=== PATIENT | male | born 1995 | race Caucasian/White ===

== ENCOUNTER 2017-03-03 16:08 | Inpatient (IN) ==
[~2017-03-03 16:08] MED LIST: *HR* Midazolam HCl 5 MG/5 ML VIAL IVP ONE; *HR* Rocuronium Bromide 50 MG/5 ML VIAL IVC ONE
[2017-03-03] MEDS ORDERED: Naloxone 0.4 MG/ML INJ IVP PRN (18:42)
[2017-03-03] MEDS ORDERED: Ondansetron 4 MG/2 ML VIAL IVP PRN (18:42)
[2017-03-03] MEDS ORDERED: Lacri-Lube 3.5 GM TUBE BOTH EYES PRN (18:44)
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
[2017-03-03] MEDS ORDERED: 0.9 % Sodium Chloride 1,000 ML IVC ONE (18:51)
[2017-03-03 19:12] LABS: ABG Base Excess 2.6 mEq/L (-2.0 to 3.0); ABG HCO3 27.2 mEQ/L (21-27); ABG Oxygen Saturation 100 % (95-98); ABG PCO2 41 mmHg (35-45); ABG PH 7.43 pH Units (7.32-7.45); ABG PO2 351 mmHg (85-104); ABG TCO2 28.5 mEq/L (20-26)
[2017-03-03 19:13] LABS: Blood Gas FiO2 80 %; Blood Gas PEEP 5 cm H2O; Blood Gas Respiration Rate 12; Blood Gas VT 500 cc
[2017-03-03 19:17] LABS: Basophils % 0.3 %; Eosinophils % 0.2 %; Hematocrit 43.3 % (37.5-50.1); Hemoglobin 14.3 g/dL (12.9-16.9); Immature Granulocytes % 0.3 % (0-4); Lymphocytes # 0.8 K/mcL (0.6-4.6); Lymphocytes % 6.6 %; Mean Corpuscular Hemoglobin 27.4 pg (28.0-33.3); Mean Corpuscular Volume 83.1 fL (83.0-100.0); Monocytes # 0.5 K/mcL (0.0-1.3); Neutrophils # 10.5 K/mcL (1.6-8.9); Platelet Count 298 K/mcL (140-400); Red Blood Count 5.21 M/mcL (4.19-5.50); Red Cell Distribution Width 14.3 % (11.5-14.5); Segmented Neutrophils % 88.6 %
[2017-03-03 19:33] LABS: Alanine Aminotransferase 12 Units/L (0-55); Albumin 3.8 g/dL (3.5-5.0); Albumin/Globulin Ratio 1.5 (1.1-2.2); Alkaline Phosphatase 57 Units/L (38-126); Aspartate Amino Transferase 24 Units/L (5-34); BUN/Creatinine Ratio 17 (6-26); Bilirubin,Total 0.6 mg/dL (0.2-1.2); Blood Urea Nitrogen 11 mg/dL (8-26); Calcium 9.6 mg/dL (8.6-10.8); Carbon Dioxide 27 mEq/L (19-29); Chloride 112 mEq/L (98-109); Globulin 2.6 g/dL (2.4-3.5); Glucose 74 mg/dL (70-99); Magnesium 1.8 mg/dL (1.6-2.6); Osmolality,Calculated 304 (280-300); Phosphorous 2.7 mg/dL (2.3-4.7); Potassium 4.4 mEq/L (3.5-4.5); Sodium 148 mEq/L (136-145); Total Protein 6.4 g/dL (6.0-8.3); eGFR For African Americans > 60 (> 60); eGFR For Non-African Americans > 60 (> 60)
[2017-03-03 19:53] LABS: Thyroid Stimulating Hormone 0.352 mcIU/mL (0.350-4.840)
[2017-03-03] MEDS: 0.9 % Sodium Chloride 1,000 ML IVC SCH (20:29)
[2017-03-03] MEDS: *HR* Heparin 5,000 UNIT/ML VIAL SQ SCH (20:30)
[2017-03-03] MEDS: Chlorhexidine Rinse 15 ML MOUTHWASH MM SCH (20:30)
[2017-03-03] MEDS: Lacri-Lube 3.5 GM TUBE BOTH EYES SCH ×2 (20:30→23:50)
[2017-03-03] MEDS: FentaNYL (PF) 1,000 MCG in 0.9 % Sodium Chloride 80 ML IVC SCH (20:31)
[2017-03-03 21:48] LABS: Bilirubin,Urine Small (Negative); Blood,Urine Negative (Negative); Clarity,Urine Cloudy (Clear); Color,Urine Yellow (Yellow); Glucose,Urine (UA) Normal (Normal); Ketones,Urine 40 mg/dL (Negative); Leukocyte Esterase,Urine Moderate (Negative); Nitrite,Urine Positive (Negative); Protein,Urine Trace mg/dL (Neg-Trace); Specific Gravity,Urine 1.025 (1.010-1.025); Urobilinogen,Urine Normal (Normal)
[2017-03-03 21:50] LABS: Bacteria,Urine None Seen per hpf (None-Few); Squamous Epithelial Cell,Urine Many per lpf (None-Few); WBC,Urine 50-100 per hpf (0-3)
[2017-03-03 21:55] LABS: Amphetamine Screen,Urine Negative ng/mL (Cutoff=1000); Barbiturate Screen,Urine Negative ng/mL (Cutoff=200); Benzodiazepines Screen,Urine Positive ng/mL (Cutoff=200); Cannabinoid Screen,Urine Positive ng/mL (Cutoff = 50); Cocaine Screen,Urine Negative ng/mL (Cutoff= 300); Opiate Screen,Urine Negative ng/mL (Cutoff=300); Phencyclidine Screen,Urine Negative ng/mL (Cutoff=25)
[2017-03-03 22:17] LABS: C-Reactive Protein 2 mg/L (Less than 5)
[2017-03-03 22:34] LABS: INR 1.1; Prothrombin Time 12.4 Seconds (9.4-12.1)
[2017-03-03 22:36] LABS: Activated Partial Thrombo Time 34.1 Seconds (26.0-36.0)
[2017-03-04] MEDS: FentaNYL (PF) 1,000 MCG in 0.9 % Sodium Chloride 80 ML IVC SCH ×4 (02:39→21:24)
[2017-03-04 02:59] LABS: Basophils # 0.1 K/mcL (0.0-0.2); Basophils % 0.4 %; Eosinophils % 0.1 %; Hematocrit 37.9 % (37.5-50.1); Hemoglobin 12.4 g/dL (12.9-16.9); Immature Granulocytes % 0.4 % (0-4); Lymphocytes # 1.2 K/mcL (0.6-4.6); Lymphocytes % 8.7 %; Mean Corpuscular HGB Conc 32.7 g/dL (31.6-35.5); Mean Corpuscular Hemoglobin 27.5 pg (28.0-33.3); Mean Platelet Volume 9.6 fL (9.4-12.4); Monocytes # 0.6 K/mcL (0.0-1.3); Monocytes % 4.5 %; Neutrophils # 11.5 K/mcL (1.6-8.9); Platelet Count 305 K/mcL (140-400); Red Blood Count 4.51 M/mcL (4.19-5.50); Red Cell Distribution Width 14.6 % (11.5-14.5); Segmented Neutrophils % 85.9 %
[2017-03-04 03:19] LABS: Alanine Aminotransferase 14 Units/L (0-55); Albumin 3.6 g/dL (3.5-5.0); Albumin/Globulin Ratio 1.4 (1.1-2.2); Alkaline Phosphatase 51 Units/L (38-126); Aspartate Amino Transferase 26 Units/L (5-34); BUN/Creatinine Ratio 20 (6-26); Bilirubin,Total 0.4 mg/dL (0.2-1.2); Blood Urea Nitrogen 12 mg/dL (8-26); Calcium 9.1 mg/dL (8.6-10.8); Carbon Dioxide 20 mEq/L (19-29); Chloride 112 mEq/L (98-109); Globulin 2.5 g/dL (2.4-3.5); Glucose 70 mg/dL (70-99); Osmolality,Calculated 300 (280-300); Potassium 3.7 mEq/L (3.5-4.5); Sodium 146 mEq/L (136-145); Total Protein 6.1 g/dL (6.0-8.3); eGFR For African Americans > 60 (> 60); eGFR For Non-African Americans > 60 (> 60)
[2017-03-04] MEDS: Lacri-Lube 3.5 GM TUBE BOTH EYES SCH ×5 (03:42→19:35)
[2017-03-04] MEDS: 0.9 % Sodium Chloride 1,000 ML IVC SCH (03:42)
[2017-03-04 04:47] LABS: ABG Base Excess -2.8 mEq/L (-2.0 to 3.0); ABG HCO3 23.2 mEQ/L (21-27); ABG Oxygen Saturation 94 % (95-98); ABG PCO2 44 mmHg (35-45); ABG PH 7.33 pH Units (7.32-7.45); ABG PO2 77 mmHg (85-104); ABG TCO2 24.6 mEq/L (20-26)
[2017-03-04 04:48] LABS: Blood Gas FiO2 30 %; Blood Gas PEEP 5 cm H2O; Blood Gas Respiration Rate 12; Blood Gas VT 500 cc
[2017-03-04] MEDS: *HR* Heparin 5,000 UNIT/ML VIAL SQ SCH ×3 (06:23→21:42)
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
[2017-03-04] MEDS: Chlorhexidine Rinse 15 ML MOUTHWASH MM SCH ×2 (08:10→19:36)
[2017-03-04] MEDS: Pantoprazole 40 MG VIAL IVP SCH (08:10)
[2017-03-04 08:44] LABS: Acetaminophen < 1.0 mcg/mL (10-30); Salicylate < 5.0 mg/dL (15-30)
[2017-03-04] MEDS ORDERED: Bisacodyl 10 MG RECTAL SUPPOSITORY RC PRN (10:02)
[2017-03-04] MEDS: Ringers Solution, Lactated 1,000 ML IVC SCH (10:36)
--- NOTE | 2017-03-04 12:32 | Event Note ---
Date of Encounter: 03/04/17 Time of Encounter: 12:24 Conversation had with patient's father and girlfriend at bedside. Girlfriend reports that she woke up around 10:30 yesterday morning when Desmond feel out of bed. She put him back in bed and he continued to thrash around. She states that his lip was twitching, his eyes were dilated and it was "like he couldn't hear or see anything." She states that he fell out of bed a total of 4 times because he continued to thrash around in the bed. Per girlfriend, patient is supposed to be taking neurotin 600mg 1 tablet BID. But sometimes he will wake up around 5am in the morning because of pain and is unable to get back to sleep. He will then take "a few" of the neurontin at that time as well. He is on baclofen and they are not sure if sometimes he misses the dose or takes too many. They report the only new medication was viagra that he has been taking for probably the last month. He last took it two days before. Family denies any illegal drug use besides marijuana. They report that he doesn 't eat well or drink enough, he mostly drinks Monster drinks. Patient has been constipated for the last 10 days despite ED visit with 2 enemas and 2 Mg Citrate. He had a bowel movement in the bed before this event. Family denies any recent fevers but reports 1 episode of chills and 1 episode of nausea/vomiting a couple days ago. No other sick contacts or flu symptoms. No other changes in medication.
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
[2017-03-04] MEDS ORDERED: *HR* Midazolam HCl 5 MG/5 ML VIAL IVP ONE ×2 (18:41→18:45)
[2017-03-04] MEDS: Dexmedetomidine HCl 400 MCG/100 ML MLS IVC SCH (21:10)
[2017-03-05] MEDS ORDERED: FentaNYL (PF) 3,000 MCG in 0.9 % Sodium Chloride 240 ML IVC SCH (00:45)
[2017-03-05] MEDS: Ringers Solution, Lactated 1,000 ML IVC SCH ×2 (01:17→13:10)
[2017-03-05] MEDS: Lacri-Lube 3.5 GM TUBE BOTH EYES SCH ×4 (01:51→12:00)
[2017-03-05 04:00] LABS: BUN/Creatinine Ratio 17 (6-26); Blood Urea Nitrogen 10 mg/dL (8-26); Calcium 8.9 mg/dL (8.6-10.8); Carbon Dioxide 20 mEq/L (19-29); Chloride 110 mEq/L (98-109); Creatine Kinase 922 Units/L (30-200); Glucose 64 mg/dL (70-99); Magnesium 1.5 mg/dL (1.6-2.6); Osmolality,Calculated 291 (280-300); Phosphorous 3.7 mg/dL (2.3-4.7); Potassium 3.7 mEq/L (3.5-4.5); Sodium 142 mEq/L (136-145); eGFR For African Americans > 60 (> 60); eGFR For Non-African Americans > 60 (> 60)
[2017-03-05 04:02] LABS: Ionized Calcium 1.12 mmol/L (1.15-1.35)
[2017-03-05 04:45] LABS: ABG Base Excess -1.2 mEq/L (-2.0 to 3.0); ABG HCO3 23.6 mEQ/L (21-27); ABG Oxygen Saturation 96 % (95-98); ABG PCO2 39 mmHg (35-45); ABG PH 7.39 pH Units (7.32-7.45); ABG PO2 85 mmHg (85-104); ABG TCO2 24.8 mEq/L (20-26); Blood Gas FiO2 30 %
[2017-03-05] MEDS: *HR* Heparin 5,000 UNIT/ML VIAL SQ SCH ×3 (05:26→22:00)
[2017-03-05 05:52] LABS: Basophils # 0.1 K/mcL (0.0-0.2); Basophils % 0.4 %; Eosinophils # 0.1 K/mcL (0.0-0.6); Eosinophils % 0.4 %; Hematocrit 38.5 % (37.5-50.1); Hemoglobin 12.4 g/dL (12.9-16.9); Immature Granulocytes % 0.8 % (0-4); Lymphocytes # 0.7 K/mcL (0.6-4.6); Lymphocytes % 5.8 %; Mean Corpuscular HGB Conc 32.2 g/dL (31.6-35.5); Mean Corpuscular Hemoglobin 27.9 pg (28.0-33.3); Mean Corpuscular Volume 86.5 fL (83.0-100.0); Mean Platelet Volume 10.2 fL (9.4-12.4); Monocytes # 0.5 K/mcL (0.0-1.3); Monocytes % 3.9 %; Neutrophils # 10.6 K/mcL (1.6-8.9); Platelet Count 169 K/mcL (140-400); Red Blood Count 4.45 M/mcL (4.19-5.50); Red Cell Distribution Width 14.8 % (11.5-14.5); Segmented Neutrophils % 88.7 %
[2017-03-05] MEDS ORDERED: *HR* Dextrose 50 % in Water (Syg) 50 ML SYRINGE IVP PRN (06:50)
[2017-03-05] MEDS ORDERED: Dextrose Gel 15 GM PO PRN ×2 (06:50)
[2017-03-05] MEDS ORDERED: D5% in Water 1,000 ML IVC PRN (06:50)
[2017-03-05 06:57] LABS: Platelet Estimate Normal (Normal)
--- NOTE | 2017-03-05 07:21 | Neurology Progress Note ---
Date of Encounter: 03/05/17 Time of Encounter: 07:19 Assessment and Plan (1) Altered mental status Current Visit: Yes Status: Acute Patient this point is heavily sedated. However he was less restless overnight. No involuntary jerks reported. I recommend at some point today trying to lighten up the sedation to see whether or not he remains agitated or confused. If so then I would recommend consulting interventional radiology for an LP. Bedside LP would likely be difficult since he has hardware supporting the lumbar spine. EEG would not be helpful at this point due to the sedation. I will continue to follow him. Case was discussed with nursing as well as the resident physician. Qualifiers: Altered mental status type: unspecified Qualified Code(s): R41.82 - Altered mental status, unspecified Subjective Interval history: The chart was reviewed, the patient was seen and examined. Case was discussed with the night staff. He has been resting more comfortably since his sedation is been increased. Currently on Precedex and propofol. Patient remains afebrile however still has a white count. Neurologic examination is inaccurate since he is on heavy sedation. Objective - Constitutional Vitals: Temp Pulse Resp BP Pulse Ox 97.8 F 66 12 95/58 99 03/05/17 04:17 03/05/17 06:00 03/05/17 06:00 03/05/17 06:00 03/05/17 06:00 - Neurological Exam Additional comments: The patient is heavily sedated therefore neurologic examination could not be considered accurate. No involuntary movements are identified. Results - Laboratory Findings CBC and BMP: 03/05/17 05:29 03/05/17 03:36 Abnormal lab findings: Abnormal lab results WBC 12.0 K/mcL (4.3-11.1) H 03/05/17 05:29 Hgb 12.4 g/dL (12.9-16.9) L 03/05/17 05:29 MCH 27.9 pg (28.0-33.3) L 03/05/17 05: RDW 14.8 % (11.5-14.5) H 03/05/17 05:29 Neutrophils # 10.6 K/mcL (1.6-8.9) H 03/05/17 05:29 PT 12.4 Seconds (9.4-12.1) H 03/03/17 22:20 D-Dimer 1057 ng/mLFEU (0-500) H 03/03/17 22:20 Chloride 110 mEq/L (98-109) H 03/05/17 03:36 Creatinine 0.59 mg/dL (0.72-1.25) L 03/05/17 03:36 Glucose 64 mg/dL (70-99) L 03/05/17 03:36 Ionized Calcium 1.12 mmol/L (1.15-1.35) L 03/05/17 03:36 Magnesium 1.5 mg/dL (1.6-2.6) L 03/05/17 03:36 Creatine Kinase 922 Units/L (30-200) H 03/05/17 03:36 Urine Clarity Cloudy (Clear) A 03/03/17 21:30 Urine Ketones 40 mg/dL (Negative) H 03/03/17 21:30 Urine Nitrite Positive (Negative) A 03/03/17 21:30 Urine Bilirubin Small (Negative) H 03/03/17 21:30 Ur Leukocyte Esterase Moderate (Negative) H 03/03/17 21:30 Urine Microscopic RBC 5-15 per hpf (0-3) H 03/03/17 21:30 Urine Microscopic WBC 50-100 per hpf (0-3) H 03/03/17 21:30 Ur Squamous Epith Cells Many per lpf (None-Few) H 03/03/17 21:30 Ur Culture Indicated? YES (NO) A 03/03/17 21:30 Salicylates < 5.0 mg/dL (15-30) L 03/04/17 08:14 Acetaminophen < 1.0 mcg/mL (10-30) L 03/04/17 08:14 U Benzodiazepines Scrn Positive ng/mL (Xrbaeh=756) H 03/03/17 21:30 U Marijuana (THC) Screen Positive ng/mL (Cutoff = 50) H 03/03/17 21:30 Consult Discharge Plan - Plan Referrals: NO,PCP [Primary Care Provider] -
[2017-03-05] MEDS ORDERED: Calcium Gluconate 1,000 MG in D5% in Water 100 ML IVPB PRN (07:56)
[2017-03-05] MEDS ORDERED: Potassium Phosphate 44 MEQ in 0.9 % Sodium Chloride 250 ML IVPB PRN (07:56)
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
[2017-03-05] MEDS: Dexmedetomidine HCl 400 MCG/100 ML MLS IVC SCH (08:23)
[2017-03-05] MEDS: Chlorhexidine Rinse 15 ML MOUTHWASH MM SCH (08:34)
[2017-03-05] MEDS: Pantoprazole 40 MG VIAL IVP SCH (08:34)
[2017-03-05] MEDS ORDERED: Potassium Chloride Elixir 20 MEQ/15 ML UDC GTUBE ONE (09:02)
[2017-03-05] MEDS: Magnesium Sulfate 2 GM in D5% in Water 100 ML IVPB PRN (09:03)
[2017-03-05] MEDS ORDERED: Acetaminophen IV 1,000 MG/100 ML INFUS..BTL IVPB ONE (11:44)
[2017-03-05] MEDS ORDERED: Levalbuterol Neb 1.25 MG/3 ML IH SCH (12:15)
--- NOTE | 2017-03-05 13:10 | Event Note ---
Date of Encounter: 03/05/17 Time of Encounter: 13:10 Patient successfully extubated to high flow oxygen via oxymask. He initially remained extremely drowsy and would not follow commands or answer questions. He would occasionally be apneic and o2 saturation would drop around 84%. He would then stack his breaths and come back up to the 95% range without stimulation. Patient's O2 saturation stayed up longer as patient began to wake up more. He is now still confused and sleepy but able to answer some questions and follow commands. He says that he doesn't remember what happens. He knows he took several extra of his muscle relaxant. Patient has good cough. He is now coughing up green purulent sputum that is a change from before. He also had an elevated temperature of 103.5. And on exam , he has worsening rhonchi in the right lung. Will send a new sputum culture and restart Ceftriaxone. Xopenex prn. Continue precedex and prn dilaudid for the agitation and any pain. Still do not feel that this is a meningitis. Will hold off on the lumbar puncture at this time.
[2017-03-05] MEDS ORDERED: Levalbuterol Neb 1.25 MG/3 ML IH PRN (14:07)
[2017-03-05] MEDS: *HR* HYDROmorphone (PF) 1 MG/ML SYRINGE IVP PRN ×3 (15:02→22:00)
--- NOTE | 2017-03-05 17:02 | Electrocardiograph Report ---
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
--- NOTE | 2017-03-05 18:58 | Electrocardiograph Report ---
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
[2017-03-05 19:45] LABS: Magnesium 1.3 mg/dL (1.6-2.6); Potassium 3.8 mEq/L (3.5-4.5)
[2017-03-05] MEDS: Acetaminophen 325 MG TABLET PO PRN (22:17)
[2017-03-06] MEDS: Magnesium Sulfate 2 GM in D5% in Water 100 ML IVPB PRN (00:54)
[2017-03-06] MEDS: *HR* HYDROmorphone (PF) 1 MG/ML SYRINGE IVP PRN ×3 (01:19→09:57)
[2017-03-06] MEDS: Ringers Solution, Lactated 1,000 ML IVC SCH ×2 (02:20→15:01)
[2017-03-06 03:58] LABS: Basophils % 0.4 %; Eosinophils # 0.1 K/mcL (0.0-0.6); Eosinophils % 0.9 %; Hematocrit 33.4 % (37.5-50.1); Hemoglobin 11.3 g/dL (12.9-16.9); Immature Granulocytes % 0.6 % (0-4); Lymphocytes # 0.8 K/mcL (0.6-4.6); Lymphocytes % 7.7 %; Mean Corpuscular HGB Conc 33.8 g/dL (31.6-35.5); Mean Corpuscular Hemoglobin 27.8 pg (28.0-33.3); Mean Corpuscular Volume 82.1 fL (83.0-100.0); Mean Platelet Volume 9.6 fL (9.4-12.4); Monocytes # 0.3 K/mcL (0.0-1.3); Monocytes % 2.6 %; Platelet Count 219 K/mcL (140-400); Red Blood Count 4.07 M/mcL (4.19-5.50); Red Cell Distribution Width 14.7 % (11.5-14.5); Segmented Neutrophils % 87.8 %
[2017-03-06 04:10] LABS: Ionized Calcium 1.09 mmol/L (1.15-1.35)
[2017-03-06 04:15] LABS: BUN/Creatinine Ratio 13 (6-26); Blood Urea Nitrogen 8 mg/dL (8-26); Calcium 8.5 mg/dL (8.6-10.8); Carbon Dioxide 26 mEq/L (19-29); Chloride 105 mEq/L (98-109); Glucose 106 mg/dL (70-99); Magnesium 2.1 mg/dL (1.6-2.6); Osmolality,Calculated 285 (280-300); Phosphorous 2.7 mg/dL (2.3-4.7); Potassium 3.7 mEq/L (3.5-4.5); Sodium 138 mEq/L (136-145); eGFR For African Americans > 60 (> 60); eGFR For Non-African Americans > 60 (> 60)
[2017-03-06] MEDS: Acetaminophen 325 MG TABLET PO PRN (05:07)
[2017-03-06] MEDS: *HR* Heparin 5,000 UNIT/ML VIAL SQ SCH ×3 (05:07→21:27)
[2017-03-06] MEDS: Dexmedetomidine HCl 400 MCG/100 ML MLS IVC SCH (05:07)
[2017-03-06 06:31] LABS: Creatine Kinase 1804 Units/L (30-200)
--- NOTE | 2017-03-06 09:41 | Neurology Progress Note ---
Date of Encounter: 03/06/17 Time of Encounter: 09:39 Assessment and Plan (1) Altered mental status Current Visit: Yes Status: Acute Qualifiers: Altered mental status type: unspecified Qualified Code(s): R41.82 - Altered mental status, unspecified (2) Agitation Current Visit: Yes Status: Acute Agitation has resolved and he is slowly approaching his normal baseline mental status. I am doubtful that they continue this was due to a primary central nervous system etiology. This is highly suspicious for toxic exposure. Discussed the importance of medical compliance. No further neurologic follow as necessary. I will reevaluate him at your request. Subjective Principal diagnosis: Altered Mental Status Interval history: Chart was reviewed, patient seen and examined. Events of yesterday noted. Patient has been asked extubated and is now sitting up in bed eating his breakfast. His girlfriend is present. He does not recall any of the events that are occurred around the time of his hospital admission. However certainly he is oriented 3 follows commands and answers questions appropriately. Although he seems to be a bit exhausted. No evidence of seizure activity, no evidence of a central nervous system infectious process. Neurologically he is probably close to his normal baseline. Objective - Constitutional Vitals: Temp Pulse Resp BP Pulse Ox 98.9 F 94 14 108/65 98 03/06/17 07:38 03/06/17 09:00 03/06/17 09:00 03/06/17 09:00 03/06/17 09:00 - Neurological Exam Motor Examination: Present: other (Patient has normal strength bulk and tone of the upper extremities. He is paraplegic and cannot move his legs. There are no involuntary movements identified.) Motor examination - right side: 5/5: deltoids, biceps, triceps, therapeutic assistant Motor examination - left side: 5/5: deltoids, biceps, triceps, therapeutic assistant Mental Status Examination: Present: awake, alert, oriented to person, oriented to place, oriented to time, follows commands appropriately Results - Laboratory Findings CBC and BMP: 03/06/17 03:42 03/06/17 03:42 Abnormal lab findings: Abnormal lab results RBC 4.07 M/mcL (4.19-5.50) L 03/06/17 03:42 Hgb 11.3 g/dL (12.9-16.9) L 03/06/17 03:42 Hct 33.4 % (37.5-50.1) L 03/06/17 03:42 MCV 82.1 fL (83.0-100.0) L 03/06/17 03:42 MCH 27.8 pg (28.0-33.3) L 03/06/17 03:42 RDW 14.7 % (11.5-14.5) H 03/06/17 03:42 Neutrophils # 9.0 K/mcL (1.6-8.9) H 03/06/17 03:42 PT 12.4 Seconds (9.4-12.1) H 03/03/17 22:20 D-Dimer 1057 ng/mLFEU (0-500) H 03/03/17 22:20 Creatinine 0.60 mg/dL (0.72-1.25) L 03/06/17 03:42 Glucose 106 mg/dL (70-99) H 03/06/17 03:42 Calcium 8.5 mg/dL (8.6-10.8) L 03/06/17 03:42 Ionized Calcium 1.09 mmol/L (1.15-1.35) L 03/06/17 03:42 Creatine Kinase 1804 Units/L (30-200) H 03/06/17 03:42 Urine Clarity Cloudy (Clear) A 03/03/17 21:30 Urine Ketones 40 mg/dL (Negative) H 03/03/17 21:30 Urine Nitrite Positive (Negative) A 03/03/17 21:30 Urine Bilirubin Small (Negative) H 03/03/17 21:30 Ur Leukocyte Esterase Moderate (Negative) H 03/03/17 21:30 Urine Microscopic RBC 5-15 per hpf (0-3) H 03/03/17 21:30 Urine Microscopic WBC 50-100 per hpf (0-3) H 03/03/17 21:30 Ur Squamous Epith Cells Many per lpf (None-Few) H 03/03/17 21:30 Ur Culture Indicated? YES (NO) A 03/03/17 21:30 Salicylates < 5.0 mg/dL (15-30) L 03/04/17 08:14 Acetaminophen < 1.0 mcg/mL (10-30) L 03/04/17 08:14 U Benzodiazepines Scrn Positive ng/mL ([id number]=[id number]) H 03/03/17 21:30 U Marijuana (THC) Screen Positive ng/mL (Cutoff = 50) H 03/03/17 21:30 Consult Discharge Plan - Plan Referrals: NO,PCP [Primary Care Provider] -
[2017-03-06] MEDS ORDERED: Ringers Solution, Lactated 1,000 ML IVC SCH (10:21)
[2017-03-06] MEDS ORDERED: *HR* OxyCODONE/APAP 7.5/325 TABLET PO PRN (11:19)
[2017-03-06] MEDS ORDERED: Baclofen 10 MG TABLET PO SCH (11:30)
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
[2017-03-06] MEDS ORDERED: Gabapentin 300 MG CAPSULE PO SCH (13:00)
[2017-03-06] MEDS ORDERED: Dextrose Gel 15 GM PO PRN ×2 (13:01)
[2017-03-06] MEDS ORDERED: D5% in Water 1,000 ML IVC PRN (13:01)
[2017-03-06] MEDS ORDERED: *HR* Dextrose 50 % in Water (Syg) 50 ML SYRINGE IVP PRN (13:01)
[2017-03-06] MEDS ORDERED: Naloxone 0.4 MG/ML INJ IVP PRN (13:01)
[2017-03-06] MEDS ORDERED: Acetaminophen 325 MG TABLET PO PRN (13:01)
[2017-03-06] MEDS ORDERED: Levalbuterol Neb 1.25 MG/3 ML IH PRN (13:01)
[2017-03-06] MEDS ORDERED: *HR* LORazepam 0.5 MG TABLET PO ONE (14:45)
[2017-03-06] MEDS: *HR* OxyCODONE/APAP 7.5/325 TABLET PO PRN ×2 (15:16→21:26)
[2017-03-06] MEDS ORDERED: Amoxicillin/Clavulanate 500 MG TABLET PO SCH (17:00)
[2017-03-06] MEDS: Gabapentin 300 MG CAPSULE PO SCH ×2 (18:39→20:01)
[2017-03-06] MEDS: Amoxicillin/Clavulanate 500 MG TABLET PO SCH (20:01)
[2017-03-06] MEDS: Baclofen 10 MG TABLET PO SCH (20:01)
[2017-03-06] MEDS: Nystatin Cream 15 GM TUBE TP SCH (20:02)
[2017-03-06] MEDS ORDERED: Nystatin Cream 15 GM TUBE TP SCH (21:00)
[2017-03-06] MEDS ORDERED: *HR* HYDROmorphone (PF) 1 MG/ML SYRINGE IVP ONE (23:51)
[2017-03-07] MEDS: Ringers Solution, Lactated 1,000 ML IVC SCH (01:20)
[2017-03-07] MEDS: Baclofen 10 MG TABLET PO SCH ×3 (03:34→21:54)
[2017-03-07] MEDS: *HR* OxyCODONE/APAP 7.5/325 TABLET PO PRN ×2 (03:43→21:55)
[2017-03-07] MEDS: *HR* Heparin 5,000 UNIT/ML VIAL SQ SCH ×3 (05:45→21:55)
[2017-03-07 06:23] LABS: Basophils % 0.2 %; Eosinophils # 0.1 K/mcL (0.0-0.6); Eosinophils % 2.1 %; Hematocrit 36.1 % (37.5-50.1); Hemoglobin 11.8 g/dL (12.9-16.9); Immature Granulocytes % 0.4 % (0-4); Lymphocytes # 0.9 K/mcL (0.6-4.6); Lymphocytes % 15.2 %; Mean Corpuscular HGB Conc 32.7 g/dL (31.6-35.5); Mean Corpuscular Hemoglobin 27.3 pg (28.0-33.3); Mean Corpuscular Volume 83.6 fL (83.0-100.0); Monocytes # 0.3 K/mcL (0.0-1.3); Monocytes % 4.9 %; Neutrophils # 4.4 K/mcL (1.6-8.9); Platelet Count 242 K/mcL (140-400); Red Blood Count 4.32 M/mcL (4.19-5.50); Red Cell Distribution Width 14.6 % (11.5-14.5); Segmented Neutrophils % 77.2 %
[2017-03-07 06:30] LABS: Alanine Aminotransferase 23 Units/L (0-55); Albumin 2.9 g/dL (3.5-5.0); Alkaline Phosphatase 58 Units/L (38-126); Aspartate Amino Transferase 37 Units/L (5-34); BUN/Creatinine Ratio 10 (6-26); Bilirubin,Total 0.5 mg/dL (0.2-1.2); Blood Urea Nitrogen 7 mg/dL (8-26); Calcium 8.6 mg/dL (8.6-10.8); Carbon Dioxide 27 mEq/L (19-29); Chloride 111 mEq/L (98-109); Creatine Kinase 954 Units/L (30-200); Glucose 104 mg/dL (70-99); Magnesium 1.8 mg/dL (1.6-2.6); Osmolality,Calculated 298 (280-300); Phosphorous 3.2 mg/dL (2.3-4.7); Potassium 3.6 mEq/L (3.5-4.5); Total Protein 5.9 g/dL (6.0-8.3); eGFR For African Americans > 60 (> 60); eGFR For Non-African Americans > 60 (> 60)
[2017-03-07 06:39] LABS: Sodium 145 mEq/L (136-145)
[2017-03-07] MEDS ORDERED: Bisacodyl 10 MG RECTAL SUPPOSITORY RC SCH ×2 (09:00)
[2017-03-07] MEDS: Amoxicillin/Clavulanate 500 MG TABLET PO SCH ×2 (09:13→21:54)
[2017-03-07] MEDS: Gabapentin 300 MG CAPSULE PO SCH ×4 (09:14→21:54)
[2017-03-07] MEDS: Nystatin Cream 15 GM TUBE TP SCH ×2 (09:16→21:55)
[2017-03-07] MEDS ORDERED: Bisacodyl 10 MG RECTAL SUPPOSITORY RC ONE ×2 (09:31→21:35)
[2017-03-07] MEDS ORDERED: Temazepam 15 MG CAPSULE PO PRN (09:33)
--- NOTE | 2017-03-07 09:36 | Internal Med Progress Note ---
Date of Encounter: 03/07/17 Time of Encounter: 09:34 - Assessment and plan (1) Stage II pressure ulcer of sacral region Current Visit: Yes Status: Acute Assessment and plan: Every 2 hours turning regimen, dressing to sacral area. Skin care regimen. (2) Insomnia Current Visit: Yes Status: Acute Assessment and plan: We will order temazepam. Qualifiers: Insomnia type: unspecified Qualified Code(s): G47.00 - Insomnia, unspecified (3) Constipation Current Visit: Yes Status: Acute Assessment and plan: Start senna Colace. Dulcolax suppository once. Qualifiers: Constipation type: slow transit constipation Qualified Code(s): K59.01 - Slow transit constipation (4) Paraplegia Current Visit: Yes Status: Chronic Assessment and plan: PT OT evaluation. Out of bed to chair. (5) DVT prophylaxis Current Visit: Yes Status: Acute Assessment and plan: Subcutaneous heparin (6) Aspiration pneumonia Current Visit: Yes Status: Acute Assessment and plan: Continue with Augmentin, day 3 of 7. Follow-up blood cultures. We will monitor temperature curve and WBC trend. Qualifiers: Aspiration pneumonia type: unspecified Laterality: unspecified laterality Lung location: unspecified part of lung Qualified Code(s): J69.0 - Pneumonitis due to inhalation of food and vomit - Subjective Interval history: 03/07/2017: Patient reports cough productive of green sputum improved from yesterday. He was admitted to the ICU after he was found to be altered at home and he became agitated en route to the hospital and was intubated for airway protection. Currently he denies shortness of breath and chest pain. Denies fevers and chills. He reports constipation and per his mother he has not had a bowel movement for 10 days. - Constitutional Vitals: Temp Pulse Resp BP Pulse Ox 98.9 F 58 16 91/46 96 03/07/17 07:17 03/07/17 07:17 03/07/17 07:17 03/07/17 07:17 03/07/17 07:17 General appearance: Present: A&O X 3 - Eye Eye exam: Present: PERRL, conjuntiva pink, sclera anicteric Pupils: Present: PERRL - Respiratory Respiratory exam: Present: CTAB. Absent: accessory muscle use, rales, rhonchi, wheezes - Cardiovascular Cardiovascular exam: Present: RRR, +S1, +S2. Absent: diastolic murmur, gallop, rubs, systolic murmur - GI/Abdominal GI/Abdominal exam: Present: normal bowel sounds, soft, no peritoneal signs. Absent: distended, tenderness - Neurological Exam Neurological exam: Present: CN II-XII intact, oriented X3 Additional comments: Paraplegia - Skin Skin exam: Present: abrasion, erythema (Sacral stage II decubitus ulcer) Internal Medicine: Result - Labs CBC & Chem 7: 03/07/17 05:58 03/07/17 05:58 Labs: Short CBC 03/07/17 Range/Units 05:58 WBC 5.7 (4.3-11.1) K/mcL Hgb 11.8 L (12.9-16.9) g/dL Hct 36.1 L (37.5-50.1) % Plt Count 242 (140-400) K/mcL Neutrophils # 4.4 (1.6-8.9) K/mcL BMP 03/07/17 05:58 Sodium 145 D Potassium 3.6 Chloride 111 H Carbon Dioxide 27 BUN 7 L Creatinine 0.67 L Glucose 104 H Calcium 8.6 Liver Function 03/07/17 Range/Units 05:58 Total Bilirubin 0.5 (0.2-1.2) mg/dL AST 37 H (5-34) Units/L ALT 23 (0-55) Units/L Alkaline Phosphatase 58 (38-126) Units/L Albumin 2.9 L (3.5-5.0) g/dL - ABG Interpretation ABG results: ABG ABG pH 7.39 pH Units (7.32-7.45) 03/05/17 04:33 ABG pCO2 39 mmHg (35-45) 03/05/17 04:33 ABG pO2 85 mmHg (85-104) 03/05/17 04:33 ABG O2 Saturation 96 % (95-98) 03/05/17 04:33 PT/INR, D-dimer PT 12.4 Seconds (9.4-12.1) H 03/03/17 22:20 D-Dimer 1057 ng/mLFEU (0-500) H 03/03/17 22:20 Consult Discharge Plan - Plan Referrals: NO,PCP [Non-Partnered Physician] -
[2017-03-07] MEDS: Sennosides/Docusate Sodium TABLET PO SCH ×2 (11:43→21:54)
[2017-03-07] MEDS: Ondansetron 4 MG/2 ML VIAL IVP PRN (12:17)
[2017-03-07] MEDS ORDERED: *HR* LORazepam 0.5 MG TABLET PO ONE (23:16)
[2017-03-08] MEDS: Ondansetron 4 MG/2 ML VIAL IVP PRN (00:01)
[2017-03-08] MEDS: *HR* OxyCODONE/APAP 7.5/325 TABLET PO PRN ×2 (04:01→13:36)
[2017-03-08] MEDS: Baclofen 10 MG TABLET PO SCH ×2 (04:02→13:33)
[2017-03-08 05:41] LABS: Basophils % 0.7 %; Eosinophils # 0.2 K/mcL (0.0-0.6); Eosinophils % 3.8 %; Hematocrit 36.8 % (37.5-50.1); Hemoglobin 12.3 g/dL (12.9-16.9); Immature Granulocytes % 0.4 % (0-4); Lymphocytes # 1.3 K/mcL (0.6-4.6); Lymphocytes % 29.5 %; Mean Corpuscular HGB Conc 33.4 g/dL (31.6-35.5); Mean Corpuscular Hemoglobin 28.1 pg (28.0-33.3); Mean Platelet Volume 10.4 fL (9.4-12.4); Monocytes # 0.3 K/mcL (0.0-1.3); Monocytes % 6.7 %; Neutrophils # 2.7 K/mcL (1.6-8.9); Platelet Count 283 K/mcL (140-400); Red Blood Count 4.38 M/mcL (4.19-5.50); Segmented Neutrophils % 58.9 %
[2017-03-08] MEDS: *HR* Heparin 5,000 UNIT/ML VIAL SQ SCH (05:46)
[2017-03-08 05:54] LABS: BUN/Creatinine Ratio 12 (6-26); Blood Urea Nitrogen 7 mg/dL (8-26); Calcium 9.1 mg/dL (8.6-10.8); Carbon Dioxide 27 mEq/L (19-29); Chloride 107 mEq/L (98-109); Glucose 74 mg/dL (70-99); Osmolality,Calculated 295 (280-300); Potassium 3.8 mEq/L (3.5-4.5); Sodium 144 mEq/L (136-145); eGFR For African Americans > 60 (> 60); eGFR For Non-African Americans > 60 (> 60)
[2017-03-08] MEDS: Gabapentin 300 MG CAPSULE PO SCH ×2 (09:55→13:33)
[2017-03-08] MEDS: Sennosides/Docusate Sodium TABLET PO SCH (09:55)
[2017-03-08] MEDS: Amoxicillin/Clavulanate 500 MG TABLET PO SCH (09:55)
[2017-03-08] MEDS: Nystatin Cream 15 GM TUBE TP SCH (09:55)
[2017-03-08 11:53] VITALS: BP 92/54
[2017-03-08] MEDS ORDERED: Silvasorb 44.4 ML TUBE TP SCH (12:15)
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
--- NOTE | 2017-03-08 13:27 | Physician Discharge Referral ---
Home Health/Hosp Referral Info Transfer to: Home Health Provider in Charge Post Discharge: PCP - Diagnosis (1) Stage II pressure ulcer of sacral region Status: Acute (2) Insomnia Status: Acute (3) Constipation Status: Acute (4) Paraplegia Status: Chronic (5) Aspiration pneumonia Status: Acute (6) Agitation Status: Acute (7) Altered mental status Status: Acute - Respiratory Orders Smoking Cessation: Smoking cessation has been advised. For more information, call the [place] Tobacco Quit Line at 4-239-KGFU-NOW. - Diet/Nutrition Diet/Nutrition Orders: Regular - Activity Activity Orders: Chair - Services Needed Following services are medically necessary services: Nursing, Home Health Aide, Physical Therapy Home Care Orders: Wound care as directed in the discharge summary. - Transfer Medications Prescriptions: Amoxicillin/Clavulanate [Augmentin] 500 mg PO BIDWM #14 tablet Foam Bandage [Allevyn Sacrum] 1 each TP DAILY #30 bandage Magnesium Citrate 295 ml PO DAILY #1 solution Sennosides/Docusate Sodium [Senna Plus] 1 each PO BID #60 tablet Silvasorb 1 appl TP DAILY #1 tube Temazepam [Restoril] 15 mg PO HS PRN #7 capsule PRN Reason: Insomnia Home Medications: Ammonium Lactate [Crystal-Hydrolac] 1 appl TP BID 03/04/17 [History] Baclofen 20 mg PO Q8H 03/04/17 [History] Bisacodyl [Dulcolax] 10 mg RC DAILY PRN 03/04/17 [History] Ergocalciferol (VITAMIN D2) [Vitamin D2] 50,000 unit PO QWEEK 03/04/17 [History] Gabapentin [Neurontin] 600 mg PO QID 03/04/17 [History] Nystatin Cream [Mycostatin Cream] 1 appl TP BID 03/04/17 [History] Oxycodone HCl/Acetaminophen [Percocet 7.5-325 mg Tablet] 1 each PO Q6H PRN 03/04 [History] Sildenafil Citrate [Revatio] 20 mg PO AD PRN 03/04/17 [History] Amoxicillin/Clavulanate [Augmentin] 500 mg PO BIDWM #14 tablet 03/08/17 [Rx] Foam Bandage [Allevyn Sacrum] 1 each TP DAILY #30 bandage 03/08/17 [Rx] Magnesium Citrate 295 ml PO DAILY #1 solution 05/25/17 [Rx] Sennosides/Docusate Sodium [Senna Plus] 1 each PO BID #60 tablet 03/08/17 [Rx] Silvasorb 1 appl TP DAILY #1 tube 03/08/17 [Rx] Temazepam [Restoril] 15 mg PO HS PRN #7 capsule 03/08/17 [Rx] Allergies/Adverse Reactions: Allergies azithromycin [From Zithromax] Allergy (Verified 02/27/17 00:03) Anxiety codeine Adverse Reaction (Verified 02/27/17 00:03) Itching sodium bicarbonate [From Nasa Mist] Adverse Reaction (Verified 02/27/17 00:03) Nose Bleed sodium chloride [From Nasa Mist] Adverse Reaction (Verified 02/27/17 00:03) Nose Bleed Certification: Further, I certify that my clinical findings support that this patient is homebound (i.e. absences from home require considerable and taxing effort and are for medical reasons or jain services or infrequently or short duration when for other reasons) because: Homebound Reason: Patient requires assistance of a person or device to safely leave home, Post-surgery restriction and or conditions limit ability to leave home, Leaving home requires considerable and taxing effort due to condition Attestation: My signature below is to certify that this patient is under my care and that I, or nurse practitioner, or a physician's fire assistant working with me, has a face-to -face encounter with this patient.
== END 2017-03-08 13:53 | disposition home health service (06) | DRG 133 ==
LOC: 2NNU → ICNU 18:41 → SUATTDRO 19:00 → 3NENU 03-06 17:07
PROVIDERS: ADMIT Internal Medicine Sleep Medicine; ATTEND Internal Medicine

== ENCOUNTER 2020-08-09 08:17 | Inpatient (IN) ==
[2020-08-09] MEDS: 0.9 % Sodium Chloride 1,000 ML IVC SCH ×3 (08:40→19:04)
[2020-08-09 09:06] LABS: Basophils % 0.2 %; Hemoglobin 15.5 g/dL (12.9-16.9); INR 1.2; Mean Platelet Volume 9.3 fL (9.4-12.4); Prothrombin Time 14.2 Seconds (9.4-12.1)
[2020-08-09 09:09] LABS: Activated Partial Thrombo Time 26.5 Seconds (26.0-36.0)
[2020-08-09 09:22] LABS: Hematocrit 45.2 % (37.5-50.1); Immature Granulocytes % 0.8 % (0-4); Lymphocytes # 0.5 K/mcL (0.6-4.6); Lymphocytes % 2.6 %; Mean Corpuscular HGB Conc 34.3 g/dL (31.6-35.5); Mean Corpuscular Volume 81.7 fL (83.0-100.0); Monocytes # 1.1 K/mcL (0.0-1.3); Monocytes % 5.4 %; Neutrophils # 18.1 K/mcL (1.6-8.9); Platelet Count 331 K/mcL (140-400); Red Blood Count 5.53 M/mcL (4.19-5.50); Red Cell Distribution Width 13.1 % (11.5-14.5); White Blood Count 19.9 K/mcL (4.3-11.1)
[2020-08-09 09:23] LABS: Acetaminophen < 10 mcg/mL (10-20); Alanine Aminotransferase 15 Units/L (7-52); Albumin 5.2 g/dL (3.5-5.7); Albumin/Globulin Ratio 2.3 (1.1-2.2); Alkaline Phosphatase 66 Units/L (34-104); Aspartate Amino Transferase 22 Units/L (13-39); BUN/Creatinine Ratio 22 (6-26); Bilirubin,Direct 0.5 mg/dL (0.0-0.2); Bilirubin,Indirect 1.1 mg/dL (0.0-1.0); Bilirubin,Total 1.6 mg/dL (0.3-1.0); Blood Urea Nitrogen 17 mg/dL (6-20); Calcium 10.1 mg/dL (8.6-10.3); Carbon Dioxide 21 mEq/L (23-29); Chloride 100 mEq/L (98-107); Globulin 2.3 g/dL (2.4-3.5); Glucose 107 mg/dL (70-105); Lipase 10 Units/L (11-82); Magnesium 2.4 mg/dL (1.6-2.6); Osmolality,Calculated 286 (280-300); Phosphorous 3.7 mg/dL (2.7-4.5); Potassium 4.2 mEq/L (3.5-5.1); Salicylate < 2.5 mg/dL (15.0-30.0); Sodium 137 mEq/L (136-145); Total Protein 7.5 g/dL (6.4-8.9); eGFR For African Americans > 60 (> 60); eGFR For Non-African Americans > 60 (> 60)
[2020-08-09 09:29] LABS: Troponin I 0.04 ng/mL (< 0.04)
[2020-08-09] MEDS ORDERED: Isovue-370 500 ML BOTTLE IVP ONE (09:32)
[2020-08-09] MEDS ORDERED: Piperacillin/Tazobactam 3.375 GM in 0.9 % Sodium Chloride Mini Bag 100 ML IVPB ONE (09:32)
[2020-08-09 10:42] LABS: Amorphous Sediment,Urine Few per hpf (None-Few); Bacteria,Urine Few per hpf (None-Few); Bilirubin,Urine Negative (Negative); Blood,Urine Negative (Negative); Clarity,Urine Turbid (Clear); Color,Urine Light-Yellow (Yellow); Glucose,Urine (UA) Normal (Normal); Ketones,Urine 20 mg/dL (Negative); Leukocyte Esterase,Urine Trace (Negative); Nitrite,Urine Negative (Negative); Protein,Urine Trace mg/dL (Neg-Trace); RBC,Urine 0-3 per hpf (0-3); Specific Gravity,Urine 1.008 (1.010-1.025); Urobilinogen,Urine Normal (Normal); WBC,Urine 0-3 per hpf (0-3)
[2020-08-09 10:46] LABS: Amphetamine Screen,Urine Negative ng/mL (Cutoff=1000); Barbiturate Screen,Urine Negative ng/mL (Cutoff=200); Benzodiazepines Screen,Urine Positive ng/mL (Cutoff=200); Cannabinoid Screen,Urine Negative ng/mL (Cutoff = 50); Cocaine Screen,Urine Negative ng/mL (Cutoff= 300); Opiate Screen,Urine Negative ng/mL (Cutoff=300); Phencyclidine Screen,Urine Negative ng/mL (Cutoff=25)
[2020-08-09 12:25] LABS: Source,Synovial Fluid Right knee
[2020-08-09] MEDS ORDERED: 0.9 % Sodium Chloride 1,000 ML IVC ONE (13:04)
[2020-08-09 13:22] LABS: Glucose,Synovial Fluid 22 mg/dL (No Ref Range); LDH,Synovial Fluid > 1200 Units/L (No Ref Range)
[2020-08-09 14:23] LABS: Appearance,Synovial Fluid Bloody (Clear-Hazy); Color,Synovial Fluid Red (Straw)
[2020-08-09] MEDS ORDERED: Naloxone 0.4 MG/ML INJ IVP PRN (15:59)
[2020-08-09] MEDS ORDERED: Sennosides 8.6 MG TABLET PO PRN (17:41)
[2020-08-09] MEDS: *HR* HYDROmorphone (PF) 1 MG/ML SYRINGE IVP PRN ×2 (18:47→22:59)
[2020-08-09] MEDS: Piperacillin/Tazobactam 3.375 GM in 0.9 % Sodium Chloride Mini Bag 100 ML IVPB SCH (18:50)
[2020-08-09] MEDS: Sennosides 8.6 MG TABLET PO SCH (20:08)
[2020-08-09] MEDS: Nicotine 21 MG PATCH.TD24 TD SCH (22:05)
[2020-08-10 00:51] LABS: Basophils % 0.3 %; Eosinophils % 0.1 %; Hematocrit 32.6 % (37.5-50.1); Immature Granulocytes % 0.4 % (0-4); Lymphocytes # 0.9 K/mcL (0.6-4.6); Lymphocytes % 7.4 %; Mean Corpuscular HGB Conc 33.4 g/dL (31.6-35.5); Mean Corpuscular Hemoglobin 27.9 pg (28.0-33.3); Mean Corpuscular Volume 83.6 fL (83.0-100.0); Mean Platelet Volume 9.2 fL (9.4-12.4); Monocytes # 0.7 K/mcL (0.0-1.3); Monocytes % 5.8 %; Neutrophils # 9.9 K/mcL (1.6-8.9); Platelet Count 237 K/mcL (140-400); Red Cell Distribution Width 13.4 % (11.5-14.5); White Blood Count 11.5 K/mcL (4.3-11.1)
[2020-08-10 00:54] LABS: Hemoglobin 10.9 g/dL (12.9-16.9)
[2020-08-10 01:10] LABS: BUN/Creatinine Ratio 20 (6-26); Blood Urea Nitrogen 14 mg/dL (6-20); Calcium 8.1 mg/dL (8.6-10.3); Carbon Dioxide 20 mEq/L (23-29); Chloride 113 mEq/L (98-107); Glucose 135 mg/dL (70-105); Magnesium 2.1 mg/dL (1.6-2.6); Osmolality,Calculated 295 (280-300); Potassium 3.9 mEq/L (3.5-5.1); Sodium 141 mEq/L (136-145); eGFR For African Americans > 60 (> 60); eGFR For Non-African Americans > 60 (> 60)
[2020-08-10] MEDS: Piperacillin/Tazobactam 3.375 GM in 0.9 % Sodium Chloride Mini Bag 100 ML IVPB SCH ×3 (02:19→17:37)
[2020-08-10] MEDS: 0.9 % Sodium Chloride 1,000 ML IVC SCH ×3 (04:09→16:26)
[2020-08-10] MEDS: *HR* HYDROmorphone (PF) 1 MG/ML SYRINGE IVP PRN ×2 (05:53→09:58)
[2020-08-10] MEDS ORDERED: *HR* Enoxaparin 40 MG/0.4 ML SYRINGE SQ SCH (07:00)
[2020-08-10] MEDS: Nicotine 21 MG PATCH.TD24 TD SCH (09:42)
[2020-08-10] MEDS: Sennosides 8.6 MG TABLET PO SCH ×2 (09:42→22:18)
[2020-08-10 09:54] LABS: Hematocrit 31.8 % (37.5-50.1); Hemoglobin 10.7 g/dL (12.9-16.9)
[2020-08-10] MEDS: Acetaminophen 325 MG TABLET PO PRN (11:13)
[2020-08-10] MEDS: Gabapentin 300 MG CAPSULE PO SCH ×3 (12:18→22:18)
[2020-08-10] MEDS ORDERED: Bisacodyl 10 MG RECTAL SUPPOSITORY RC ONE (12:51)
[2020-08-10] MEDS: *HR* OxyCODONE/APAP 7.5/325 TABLET PO PRN ×2 (13:54→22:18)
[2020-08-10] MEDS: Ondansetron 4 MG/2 ML VIAL IVP PRN (14:50)
[2020-08-10] MEDS ORDERED: Ondansetron 4 MG/2 ML VIAL IVP ONE (21:13)
[2020-08-10 21:22] LABS: Hematocrit 27.5 % (37.5-50.1); Hemoglobin 9.4 g/dL (12.9-16.9)
[2020-08-10] MEDS: QUEtiapine Fumarate 25 MG TABLET PO SCH (22:18)
[2020-08-10] MEDS ORDERED: Isovue-370 500 ML BOTTLE IVP ONE (23:37)
[2020-08-11 01:14] LABS: Hematocrit 26.5 % (37.5-50.1); Mean Corpuscular Hemoglobin 28.3 pg (28.0-33.3); Mean Corpuscular Volume 83.3 fL (83.0-100.0); Mean Platelet Volume 9.6 fL (9.4-12.4); Platelet Count 180 K/mcL (140-400); Red Blood Count 3.18 M/mcL (4.19-5.50); Red Cell Distribution Width 13.4 % (11.5-14.5); White Blood Count 9.9 K/mcL (4.3-11.1)
[2020-08-11 01:25] LABS: INR 1.6; Prothrombin Time 17.8 Seconds (9.4-12.1)
[2020-08-11] MEDS: Piperacillin/Tazobactam 3.375 GM in 0.9 % Sodium Chloride Mini Bag 100 ML IVPB SCH ×3 (02:36→16:58)
[2020-08-11] MEDS: 0.9 % Sodium Chloride 1,000 ML IVC SCH ×2 (02:38→11:44)
[2020-08-11] MEDS: Ondansetron 4 MG/2 ML VIAL IVP PRN ×3 (04:49→22:19)
[2020-08-11 05:34] LABS: Basophils % 0.3 %; Red Cell Distribution Width 13.3 % (11.5-14.5)
[2020-08-11 05:37] LABS: Eosinophils % 0.3 %; Hematocrit 28.3 % (37.5-50.1); Hemoglobin 8.9 g/dL (12.9-16.9); Immature Granulocytes % 0.5 % (0-4); Lymphocytes # 0.7 K/mcL (0.6-4.6); Lymphocytes % 6.2 %; Mean Corpuscular HGB Conc 31.4 g/dL (31.6-35.5); Mean Platelet Volume 9.5 fL (9.4-12.4); Monocytes # 0.5 K/mcL (0.0-1.3); Monocytes % 4.1 %; Neutrophils # 9.9 K/mcL (1.6-8.9); Platelet Count 191 K/mcL (140-400); Red Blood Count 3.18 M/mcL (4.19-5.50); Segmented Neutrophils % 88.6 %; White Blood Count 11.2 K/mcL (4.3-11.1)
[2020-08-11 05:49] LABS: BUN/Creatinine Ratio 19 (6-26); Blood Urea Nitrogen 10 mg/dL (6-20); Calcium 7.7 mg/dL (8.6-10.3); Carbon Dioxide 16 mEq/L (23-29); Chloride 112 mEq/L (98-107); Glucose 97 mg/dL (70-105); Osmolality,Calculated 293 (280-300); Potassium 3.3 mEq/L (3.5-5.1); Sodium 142 mEq/L (136-145); eGFR For African Americans > 60 (> 60); eGFR For Non-African Americans > 60 (> 60)
[2020-08-11] MEDS: Vancomycin 1,250 MG/262.5 ML IV.SOLN IVPB SCH ×3 (06:54→22:19)
[2020-08-11] MEDS: Nicotine 21 MG PATCH.TD24 TD SCH (08:04)
[2020-08-11] MEDS: Cholecalciferol (D-3) 1,000 UNIT (25MCG) TABLET PO SCH (08:11)
[2020-08-11] MEDS: polyethylene glycoL 3350 17 GM POWD.PACK PO SCH ×2 (08:11→10:37)
[2020-08-11] MEDS: Sennosides 8.6 MG TABLET PO SCH ×2 (08:11→19:56)
[2020-08-11] MEDS: Gabapentin 300 MG CAPSULE PO SCH ×4 (08:11→19:56)
[2020-08-11] MEDS ORDERED: Aspirin 81 MG TAB.CHEW PO SCH (09:00)
[2020-08-11] MEDS ORDERED: Isovue-370 500 ML BOTTLE IVP ONE (10:40)
[2020-08-11] MEDS: *HR* HYDROmorphone (PF) 1 MG/ML SYRINGE IVP PRN ×3 (11:36→20:13)
[2020-08-11] MEDS: Metoclopramide 10 MG/2 ML VIAL IVP PRN ×2 (11:36→20:03)
[2020-08-11] MEDS: Acetaminophen 325 MG TABLET PO PRN (16:57)
[2020-08-11] MEDS: QUEtiapine Fumarate 25 MG TABLET PO SCH (19:57)
[2020-08-12] MEDS: *HR* HYDROmorphone (PF) 1 MG/ML SYRINGE IVP PRN ×6 (00:16→20:44)
[2020-08-12] MEDS: Piperacillin/Tazobactam 3.375 GM in 0.9 % Sodium Chloride Mini Bag 100 ML IVPB SCH ×2 (02:11→08:31)
[2020-08-12 05:10] LABS: Hematocrit 21.9 % (37.5-50.1); Hemoglobin 7.4 g/dL (12.9-16.9); Mean Corpuscular HGB Conc 33.8 g/dL (31.6-35.5); Mean Corpuscular Hemoglobin 29.2 pg (28.0-33.3); Mean Corpuscular Volume 86.6 fL (83.0-100.0); Mean Platelet Volume 9.9 fL (9.4-12.4); Platelet Count 189 K/mcL (140-400); Red Blood Count 2.53 M/mcL (4.19-5.50); Red Cell Distribution Width 13.5 % (11.5-14.5)
[2020-08-12 05:28] LABS: BUN/Creatinine Ratio 18 (6-26); Blood Urea Nitrogen 9 mg/dL (6-20); Calcium 7.8 mg/dL (8.6-10.3); Carbon Dioxide 19 mEq/L (23-29); Chloride 112 mEq/L (98-107); Glucose 120 mg/dL (70-105); Osmolality,Calculated 294 (280-300); Potassium 3.1 mEq/L (3.5-5.1); Sodium 142 mEq/L (136-145); eGFR For African Americans > 60 (> 60); eGFR For Non-African Americans > 60 (> 60)
[2020-08-12] MEDS: Ondansetron 4 MG/2 ML VIAL IVP PRN ×2 (06:03→14:17)
[2020-08-12 07:00] LABS: Vancomycin,Trough 10 mcg/mL (5-10)
[2020-08-12] MEDS ORDERED: Potassium Chloride 40 MEQ, Lidocaine 1% 2 ML in 0.9 % Sodium Chloride 500 ML IVPB ONE (07:40)
[2020-08-12] MEDS ORDERED: Potassium Chloride Elixir 20 MEQ/15 ML UDC PO ONE (07:41)
[2020-08-12] MEDS: polyethylene glycoL 3350 17 GM POWD.PACK PO SCH (08:25)
[2020-08-12] MEDS: Sennosides 8.6 MG TABLET PO SCH ×2 (08:25→20:57)
[2020-08-12] MEDS: Cholecalciferol (D-3) 1,000 UNIT (25MCG) TABLET PO SCH (08:26)
[2020-08-12] MEDS: Nicotine 21 MG PATCH.TD24 TD SCH (08:29)
[2020-08-12] MEDS: Metoclopramide 10 MG/2 ML VIAL IVP PRN ×2 (08:29→20:45)
[2020-08-12] MEDS: Vancomycin 1,250 MG/262.5 ML IV.SOLN IVPB SCH (08:30)
[2020-08-12] MEDS: Gabapentin 300 MG CAPSULE PO SCH ×4 (08:31→20:57)
[2020-08-12] MEDS: Acetaminophen 325 MG TABLET PO PRN (11:54)
[2020-08-12] MEDS ORDERED: *HR* Metoprolol 5 MG/5 ML VIAL IVP ONE (13:11)
[2020-08-12 13:57] LABS: Hemoglobin 7.4 g/dL (12.9-16.9)
[2020-08-12 14:14] LABS: % Iron Saturation 20 % (20-55); Iron 34 mcg/dL (65-175); Transferrin 120 mg/dL (203-362)
[2020-08-12 14:32] LABS: Ferritin 132 ng/mL (20-250)
[2020-08-12] MEDS ORDERED: Vancomycin 1,750 MG/517.5 ML IV.SOLN IVPB SCH (16:00)
[2020-08-12] MEDS: QUEtiapine Fumarate 25 MG TABLET PO SCH (20:57)
[2020-08-13 01:16] LABS: BUN/Creatinine Ratio 19 (6-26); Blood Urea Nitrogen 8 mg/dL (6-20); Calcium 7.6 mg/dL (8.6-10.3); Carbon Dioxide 22 mEq/L (23-29); Chloride 109 mEq/L (98-107); Glucose 126 mg/dL (70-105); Osmolality,Calculated 290 (280-300); Sodium 140 mEq/L (136-145); eGFR For African Americans > 60 (> 60); eGFR For Non-African Americans > 60 (> 60)
[2020-08-13 01:17] LABS: Hematocrit 21.3 % (37.5-50.1); Hemoglobin 7.2 g/dL (12.9-16.9); Mean Corpuscular HGB Conc 33.8 g/dL (31.6-35.5); Mean Corpuscular Hemoglobin 28.3 pg (28.0-33.3); Mean Corpuscular Volume 83.9 fL (83.0-100.0); Mean Platelet Volume 10.2 fL (9.4-12.4); Platelet Count 212 K/mcL (140-400); Red Blood Count 2.54 M/mcL (4.19-5.50); Red Cell Distribution Width 13.6 % (11.5-14.5)
[2020-08-13] MEDS: *HR* HYDROmorphone (PF) 1 MG/ML SYRINGE IVP PRN ×6 (01:17→22:59)
[2020-08-13] MEDS: Metoclopramide 10 MG/2 ML VIAL IVP PRN (05:58)
[2020-08-13] MEDS ORDERED: Potassium Chloride 40 MEQ, Lidocaine 1% 2 ML in 0.9 % Sodium Chloride 500 ML IVPB ONE (08:51)
[2020-08-13] MEDS: Gabapentin 300 MG CAPSULE PO SCH ×4 (08:54→20:43)
[2020-08-13] MEDS: Nicotine 21 MG PATCH.TD24 TD SCH (08:54)
[2020-08-13] MEDS: polyethylene glycoL 3350 17 GM POWD.PACK PO SCH (08:54)
[2020-08-13] MEDS: Cholecalciferol (D-3) 1,000 UNIT (25MCG) TABLET PO SCH (08:54)
[2020-08-13] MEDS: Ondansetron 4 MG/2 ML VIAL IVP PRN ×2 (09:06→20:42)
[2020-08-13] MEDS ORDERED: 0.9 % Sodium Chloride 250 ML IVC SCH ×2 (12:00)
[2020-08-13] MEDS: 0.9 % Sodium Chloride 1,000 ML IVC SCH ×2 (13:30→22:03)
[2020-08-13] MEDS: Acetaminophen 325 MG TABLET PO PRN (14:18)
[2020-08-13] MEDS: QUEtiapine Fumarate 25 MG TABLET PO SCH (20:42)
[2020-08-14 01:24] LABS: Basophils % 0.3 %; Eosinophils # 0.2 K/mcL (0.0-0.6); Eosinophils % 2.7 %; Hematocrit 26.4 % (37.5-50.1); Hemoglobin 9.1 g/dL (12.9-16.9); Immature Granulocytes % 0.6 % (0-4); Lymphocytes # 1.3 K/mcL (0.6-4.6); Lymphocytes % 19.1 %; Mean Corpuscular HGB Conc 34.5 g/dL (31.6-35.5); Mean Corpuscular Hemoglobin 29.2 pg (28.0-33.3); Mean Corpuscular Volume 84.6 fL (83.0-100.0); Mean Platelet Volume 9.6 fL (9.4-12.4); Monocytes # 0.4 K/mcL (0.0-1.3); Monocytes % 5.9 %; Neutrophils # 4.7 K/mcL (1.6-8.9); Nucleated Red Blood Cells 0.5 /100 WBC (0); Platelet Count 222 K/mcL (140-400); Red Blood Count 3.12 M/mcL (4.19-5.50); Red Cell Distribution Width 13.4 % (11.5-14.5); Segmented Neutrophils % 71.4 %; White Blood Count 6.6 K/mcL (4.3-11.1)
[2020-08-14 01:39] LABS: BUN/Creatinine Ratio 20 (6-26); Blood Urea Nitrogen 8 mg/dL (6-20); Calcium 7.5 mg/dL (8.6-10.3); Carbon Dioxide 21 mEq/L (23-29); Chloride 113 mEq/L (98-107); Glucose 99 mg/dL (70-105); Osmolality,Calculated 290 (280-300); Potassium 3.4 mEq/L (3.5-5.1); Sodium 141 mEq/L (136-145); eGFR For African Americans > 60 (> 60); eGFR For Non-African Americans > 60 (> 60)
[2020-08-14] MEDS: *HR* HYDROmorphone (PF) 1 MG/ML SYRINGE IVP PRN ×2 (03:23→08:28)
[2020-08-14] MEDS: Cholecalciferol (D-3) 1,000 UNIT (25MCG) TABLET PO SCH (08:27)
[2020-08-14] MEDS: polyethylene glycoL 3350 17 GM POWD.PACK PO SCH (08:27)
[2020-08-14] MEDS: Nicotine 21 MG PATCH.TD24 TD SCH (08:27)
[2020-08-14] MEDS: 0.9 % Sodium Chloride 1,000 ML IVC SCH (08:28)
[2020-08-14] MEDS: Gabapentin 300 MG CAPSULE PO SCH (08:29)
[2020-08-14] MEDS ORDERED: Potassium Chloride 40 MEQ, Lidocaine 1% 2 ML in 0.9 % Sodium Chloride 500 ML IVPB ONE (09:00)
[2020-08-14] MEDS ORDERED: Potassium Chloride Elixir 20 MEQ/15 ML UDC PO ONE (10:22)
[2020-08-14 11:19] VITALS: BP 118/72
[2020-08-14 20:49] LABS: CK-BB (CK isoenzymes) 1 % (0-0); CK-MB (CK isoenzymes) 0 % (0-4); CK-MM (CK-isoenzymes) 99 % (96-100)
[2020-08-15 14:23] LABS: CK Total (Ck Isoenzymes) 194 U/L (20-200)
== END 2020-08-14 12:04 | disposition home or self-care (01) | DRG 698 ==
LOC: 3BNU 08:17 → EMEROOARM 08:17 → SUATTDRO 17:05 → 3BNU 18:25
PROVIDERS: ADMIT Pharmacist; ATTEND Pharmacist

== ENCOUNTER 2021-09-09 01:18 | Observation (INO) ==
[2021-09-09] MEDS ORDERED: Naloxone 0.4 MG/ML INJ IVP PRN (12:33)
[2021-09-09] MEDS ORDERED: Ondansetron 4 MG/2 ML VIAL IVP PRN (12:33)
[2021-09-09] MEDS ORDERED: *HR* OxyCODONE Immed Rel 5 MG TABLET PO PRN ×2 (12:33)
[2021-09-09 13:47] LABS: Bilirubin,Urine Negative (Negative); Blood,Urine Moderate (Negative); Clarity,Urine Clear (Clear); Color,Urine Yellow (Yellow); Glucose,Urine (UA) Normal (Normal); Ketones,Urine 40 mg/dL (Negative); Leukocyte Esterase,Urine Small (Negative); Mucus,Urine Few per lpf (None-Few); Nitrite,Urine Negative (Negative); PH,Urine 5.5 pH Units (5.0-8.0); Protein,Urine Trace mg/dL (Neg-Trace); RBC,Urine 0-3 per hpf (0-3); Specific Gravity,Urine 1.028 (1.010-1.025); Squamous Epithelial Cell,Urine Few per hpf (None-Few); Urobilinogen,Urine Normal (Normal); WBC,Urine 30-50 per hpf (0-3)
[2021-09-09 13:49] LABS: Basophils % 0.2 %; Eosinophils % 0.3 %; Hematocrit 43.4 % (37.5-50.1); Hemoglobin 13.8 g/dL (12.9-16.9); Immature Granulocytes % 0.4 % (0-4); Lymphocytes # 1.8 K/mcL (0.6-4.6); Mean Corpuscular HGB Conc 31.8 g/dL (31.6-35.5); Mean Corpuscular Hemoglobin 28.2 pg (28.0-33.3); Mean Corpuscular Volume 88.8 fL (83.0-100.0); Mean Platelet Volume 9.5 fL (9.4-12.4); Monocytes # 0.6 K/mcL (0.0-1.3); Monocytes % 4.9 %; Platelet Count 284 K/mcL (140-400); Red Blood Count 4.89 M/mcL (4.19-5.50); Red Cell Distribution Width 14.3 % (11.5-14.5); Segmented Neutrophils % 80.2 %; White Blood Count 12.5 K/mcL (4.3-11.1)
[2021-09-09 14:06] LABS: BUN/Creatinine Ratio 21 (6-26); Blood Urea Nitrogen 18 mg/dL (6-20); Calcium 8.7 mg/dL (8.6-10.3); Carbon Dioxide 27 mEq/L (23-29); Chloride 102 mEq/L (98-107); Glucose 78 mg/dL (70-105); Osmolality,Calculated 285 (280-300); Potassium 4.1 mEq/L (3.5-5.1); Sodium 137 mEq/L (136-145); eGFR For African Americans > 60 (> 60); eGFR For Non-African Americans > 60 (> 60)
[2021-09-09] MEDS ORDERED: RIZATRIPTAN BENZOATE 5 MG PO PRN (15:09)
[2021-09-09] MEDS: Piperacillin/Tazobactam 3.375 GM in 0.9 % Sodium Chloride Mini Bag 100 ML IVPB SCH (16:12)
[2021-09-09] MEDS: *HR* Heparin 5,000 UNIT/ML VIAL SQ SCH (18:35)
[2021-09-09] MEDS: Acetaminophen 325 MG TABLET PO PRN (18:36)
[2021-09-09] MEDS ORDERED: SUMAtriptan succinate 50 MG TABLET PO ONE (20:47)
[2021-09-09] MEDS: Morphine Sulfate ER (12 HR) 15 MG TABLET.ER PO SCH (21:09)
[2021-09-09] MEDS: Gabapentin 300 MG CAPSULE PO SCH (21:09)
[2021-09-10] MEDS: Piperacillin/Tazobactam 3.375 GM in 0.9 % Sodium Chloride Mini Bag 100 ML IVPB SCH ×4 (00:19→23:59)
[2021-09-10] MEDS: *HR* OxyCODONE/APAP 7.5/325 TABLET PO PRN ×3 (00:23→20:12)
[2021-09-10 02:41] LABS: Basophils % 0.3 %; Eosinophils # 0.1 K/mcL (0.0-0.6); Eosinophils % 0.8 %; Hematocrit 42.2 % (37.5-50.1); Hemoglobin 14.2 g/dL (12.9-16.9); Immature Granulocytes % 0.3 % (0-4); Lymphocytes # 1.6 K/mcL (0.6-4.6); Mean Corpuscular HGB Conc 33.6 g/dL (31.6-35.5); Mean Corpuscular Hemoglobin 29.2 pg (28.0-33.3); Mean Corpuscular Volume 86.7 fL (83.0-100.0); Mean Platelet Volume 9.8 fL (9.4-12.4); Monocytes # 0.4 K/mcL (0.0-1.3); Monocytes % 4.8 %; Neutrophils # 5.5 K/mcL (1.6-8.9); Platelet Count 241 K/mcL (140-400); Red Blood Count 4.87 M/mcL (4.19-5.50); Red Cell Distribution Width 14.2 % (11.5-14.5); Segmented Neutrophils % 72.8 %; White Blood Count 7.5 K/mcL (4.3-11.1)
[2021-09-10 02:47] LABS: BUN/Creatinine Ratio 16 (6-26); Blood Urea Nitrogen 11 mg/dL (6-20); Calcium 8.7 mg/dL (8.6-10.3); Carbon Dioxide 26 mEq/L (23-29); Chloride 107 mEq/L (98-107); Glucose 75 mg/dL (70-105); Magnesium 2.3 mg/dL (1.6-2.6); Osmolality,Calculated 290 (280-300); Potassium 4.1 mEq/L (3.5-5.1); Sodium 141 mEq/L (136-145); eGFR For African Americans > 60 (> 60); eGFR For Non-African Americans > 60 (> 60)
[2021-09-10] MEDS: *HR* Heparin 5,000 UNIT/ML VIAL SQ SCH ×2 (05:10→16:17)
[2021-09-10] MEDS: Gabapentin 300 MG CAPSULE PO SCH ×4 (07:32→20:12)
[2021-09-10] MEDS: Morphine Sulfate ER (12 HR) 15 MG TABLET.ER PO SCH ×2 (07:32→20:12)
[2021-09-10] MEDS: Nicotine 21 MG PATCH.TD24 TD SCH (12:27)
[2021-09-11 02:47] LABS: BUN/Creatinine Ratio 12 (6-26); Blood Urea Nitrogen 8 mg/dL (6-20); Calcium 8.4 mg/dL (8.6-10.3); Carbon Dioxide 26 mEq/L (23-29); Chloride 108 mEq/L (98-107); Glucose 100 mg/dL (70-105); Osmolality,Calculated 292 (280-300); Potassium 3.6 mEq/L (3.5-5.1); Sodium 142 mEq/L (136-145); eGFR For African Americans > 60 (> 60); eGFR For Non-African Americans > 60 (> 60)
[2021-09-11] MEDS: *HR* OxyCODONE/APAP 7.5/325 TABLET PO PRN ×3 (04:18→23:22)
[2021-09-11] MEDS: *HR* Heparin 5,000 UNIT/ML VIAL SQ SCH ×2 (05:06→18:05)
[2021-09-11] MEDS: Nicotine 21 MG PATCH.TD24 TD SCH (09:18)
[2021-09-11] MEDS: Morphine Sulfate ER (12 HR) 15 MG TABLET.ER PO SCH ×2 (09:18→20:40)
[2021-09-11] MEDS: Gabapentin 300 MG CAPSULE PO SCH ×2 (09:18→12:52)
[2021-09-11] MEDS: Piperacillin/Tazobactam 3.375 GM in 0.9 % Sodium Chloride Mini Bag 100 ML IVPB SCH ×3 (09:19→23:23)
[2021-09-11] MEDS: Acetaminophen 325 MG TABLET PO PRN (09:22)
[2021-09-11] MEDS ORDERED: *HR* OxyCODONE/APAP 7.5/325 TABLET PO PRN (13:45)
[2021-09-11] MEDS ORDERED: Bisacodyl 10 MG RECTAL SUPPOSITORY RC PRN (13:45)
[2021-09-11] MEDS: Baclofen 10 MG TABLET PO SCH ×2 (18:07→23:22)
[2021-09-11] MEDS: Gabapentin 400 MG CAPSULE PO SCH (20:39)
[2021-09-11] MEDS: QUEtiapine Fumarate 25 MG TABLET PO SCH (20:39)
[2021-09-11] MEDS ORDERED: Morphine Sulfate ER (12 HR) 15 MG TABLET.ER PO SCH (21:00)
[2021-09-12] MEDS: *HR* Heparin 5,000 UNIT/ML VIAL SQ SCH ×2 (04:44→18:36)
[2021-09-12] MEDS: Gabapentin 300 MG CAPSULE PO SCH ×2 (06:05→11:56)
[2021-09-12] MEDS: Piperacillin/Tazobactam 3.375 GM in 0.9 % Sodium Chloride Mini Bag 100 ML IVPB SCH ×2 (09:03→15:16)
[2021-09-12] MEDS: Baclofen 10 MG TABLET PO SCH ×2 (09:03→18:36)
[2021-09-12] MEDS: Morphine Sulfate ER (12 HR) 15 MG TABLET.ER PO SCH ×2 (09:03→21:07)
[2021-09-12] MEDS: Nicotine 21 MG PATCH.TD24 TD SCH (09:05)
[2021-09-12] MEDS: *HR* OxyCODONE/APAP 7.5/325 TABLET PO PRN (09:09)
[2021-09-12] MEDS: Gabapentin 400 MG CAPSULE PO SCH (21:06)
[2021-09-12] MEDS: QUEtiapine Fumarate 25 MG TABLET PO SCH (21:07)
[2021-09-13] MEDS: Baclofen 10 MG TABLET PO SCH ×2 (00:30→07:50)
[2021-09-13 05:57] LABS: Basophils % 0.4 %; Eosinophils # 0.1 K/mcL (0.0-0.6); Eosinophils % 2.5 %; Hematocrit 48.2 % (37.5-50.1); Hemoglobin 16.2 g/dL (12.9-16.9); Immature Granulocytes % 0.4 % (0-4); Lymphocytes % 19.7 %; Mean Corpuscular HGB Conc 33.6 g/dL (31.6-35.5); Mean Corpuscular Hemoglobin 29.2 pg (28.0-33.3); Monocytes # 0.3 K/mcL (0.0-1.3); Monocytes % 4.7 %; Neutrophils # 3.8 K/mcL (1.6-8.9); Platelet Count 294 K/mcL (140-400); Red Blood Count 5.54 M/mcL (4.19-5.50); Red Cell Distribution Width 14.2 % (11.5-14.5); Segmented Neutrophils % 72.3 %; White Blood Count 5.3 K/mcL (4.3-11.1)
[2021-09-13] MEDS: *HR* Heparin 5,000 UNIT/ML VIAL SQ SCH (06:03)
[2021-09-13] MEDS: Piperacillin/Tazobactam 3.375 GM in 0.9 % Sodium Chloride Mini Bag 100 ML IVPB SCH (06:03)
[2021-09-13] MEDS: Gabapentin 300 MG CAPSULE PO SCH ×2 (06:03→12:13)
[2021-09-13 06:11] LABS: BUN/Creatinine Ratio 7 (6-26); Blood Urea Nitrogen 6 mg/dL (6-20); Calcium 9.4 mg/dL (8.6-10.3); Carbon Dioxide 30 mEq/L (23-29); Chloride 107 mEq/L (98-107); Glucose 71 mg/dL (70-105); Osmolality,Calculated 294 (280-300); Potassium 4.2 mEq/L (3.5-5.1); Sodium 144 mEq/L (136-145); eGFR For African Americans > 60 (> 60); eGFR For Non-African Americans > 60 (> 60)
[2021-09-13] MEDS: Morphine Sulfate ER (12 HR) 15 MG TABLET.ER PO SCH (07:50)
[2021-09-13] MEDS: Nicotine 21 MG PATCH.TD24 TD SCH (07:50)
[2021-09-13] MEDS: *HR* OxyCODONE/APAP 7.5/325 TABLET PO PRN (10:51)
[2021-09-13 11:17] VITALS: BP 117/62; PULSE 74; TEMP 97.9; O2SAT 97
[2021-09-13] MEDS ORDERED: Piperacillin/Tazobactam 3.375 GM in 0.9 % Sodium Chloride Mini Bag 100 ML IVPB SCH (14:00)
[2021-09-13] MEDS ORDERED: Cefdinir 300 MG CAPSULE PO SCH (21:00)
== END 2021-09-13 14:04 | disposition home health service (06) ==
LOC: 3NENU → SUATTDRO 11:45
PROVIDERS: ADMIT Internal Medicine; ATTEND General Practice